=== PATIENT | male | born 1965 | race Asian ===

== ENCOUNTER 2025-07-21 10:07 | Day surgery (SDC) | payer BC ==
[2025-07-20 16:26] VITALS: BMI 22.2
[2025-07-21] MEDS ORDERED: Heparin 5,000 UNITS/ML VIAL ONE (11:59)
[2025-07-21] MEDS ORDERED: CEFAZOLIN 2 GM VIAL ONE (12:00)
[2025-07-21] MEDS ORDERED: Bacitracin Zinc Ointment 30 gm TUBE ONE (12:38)
[2025-07-21] MEDS ORDERED: Bupivacaine 0.25% HCL 30 ML VIAL ONE (12:38)
[2025-07-21] MEDS ORDERED: fentaNYL PF 100 MCG/2 ML SYRINGE ONE (13:26)
[2025-07-21] MEDS ORDERED: PROPOFOL 20 ML ONE (13:26)
[2025-07-21] MEDS ORDERED: Rocuronium Bromide 10 MG/ML (10ML VIAL) ONE (13:27)
[2025-07-21] MEDS ORDERED: Lidocaine 1% PF 5 ML VIAL ONE (13:27)
[2025-07-21] MEDS ORDERED: Ketorolac Tromethamine 30 MG (1 mL) VIAL ONE (13:51)
[2025-07-21] MEDS ORDERED: Ondansetron PF 4 MG/2 ML Vial ONE (13:51)
[2025-07-21] MEDS ORDERED: PHENYLEPHRINE-NS 100 MCG/ML 10 ML SYRINGE ONE (14:06)
[2025-07-21] MEDS ORDERED: SUGAMMADEX SODIUM 200 MG/2 ML VIAL ONE (15:07)
== END 2025-07-21 17:34 | disposition home or self-care (01) ==
LOC: SDC 10:07
PROVIDERS: ATTEND Plastic Surgery
PROC: 0HQ6XZZ Repair Back Skin, External Approach (ICD-10-PCS; principal; 2025-07-21)
PROC: 0HB6XZZ Excision of Back Skin, External Approach (ICD-10-PCS; principal; 2025-07-21)
DX: C44.519 Basal cell carcinoma of skin of other part of trunk (principal)
CPT/HCPCS: 88305; 88331; 88332; J0169; J0665; J1100; J1644; J1885; J2405; J2704

== ENCOUNTER 2025-07-23 12:40 | Day surgery (SDC) | payer BC ==
[2025-07-23] MEDS ORDERED: PROPOFOL 20 ML ONE (13:25)
[2025-07-23] MEDS ORDERED: fentaNYL PF 100 MCG/2 ML SYRINGE ONE (13:25)
[2025-07-23 13:34] LABS: Hematocrit 35.1 % (42.0-52.0); Hemoglobin 12.0 g/dL (14.0-18.0); Mean Corpuscular Hemoglobin 29.6 pg (27.0-31.0); Mean Corpuscular Volume 86.7 fL (78.0-98.0); Platelet Count 123 10x3/uL (130-400); Red Blood Cell (RBC) Count 4.05 mill/uL (4.70-6.10); White Blood Cell (WBC) Count 8.31 10x3/uL (4.8-10.8)
[2025-07-23] MEDS ORDERED: CEFAZOLIN 2 GM VIAL ONE (13:36)
[2025-07-23] MEDS ORDERED: Tranexamic Acid 1,000 MG/10 ML VIAL ONE (13:42)
[2025-07-23] MEDS ORDERED: Lidocaine 1% PF 5 ML VIAL ONE (13:54)
[2025-07-23] MEDS ORDERED: SUCCINYLCHOLINE/SOD CL,ISO/PF 200 MG/10 ML SYRINGE FS ONE (13:54)
[2025-07-23 14:06] LABS: Platelet Adequacy Comment Platelets Normal
[2025-07-23] MEDS ORDERED: Ondansetron PF 4 MG/2 ML Vial ONE (14:08)
[2025-07-23] MEDS ORDERED: PHENYLEPHRINE-NS 100 MCG/ML 10 ML SYRINGE ONE (14:24)
[2025-07-23] MEDS ORDERED: SUGAMMADEX SODIUM 200 MG/2 ML VIAL ONE (14:35)
[2025-07-23] MEDS ORDERED: HYDROcodone/Acetaminophen 5/325 mg Tablet ONE (15:11)
== END 2025-07-23 16:00 | disposition home or self-care (01) ==
LOC: SDC 12:40
PROVIDERS: ATTEND Plastic Surgery
PROC: 0J970ZZ Drainage of Back Subcutaneous Tissue and Fascia, Open Approach (ICD-10-PCS; principal; 2025-07-23)
DX: L76.31 Postprocedural hematoma of skin and subcutaneous tissue following a dermatologic procedure (principal)
CPT/HCPCS: 85025; J2405; J2704